=== PATIENT | male | born 1980 | race Caucasian/White ===

== ENCOUNTER 2016-10-17 19:35 | Emergency (ER) | payer OTHER ==
--- NOTE | 2016-10-17 22:03 | ED CLINICAL REPORT ---
Clinical Report - Physicians/Mid Levels [facility] [address] [place] [address] 10/17/2016 19:36 Patient: JENNIFER RICKS Time Seen: 20:45 Oct 17 2016. Arrived- By private vehicle. Historian- patient (SO). HISTORY OF PRESENT ILLNESS Chief Complaint: nausea / chills. This started just prior to arrival and is still present. No weight loss or headache. (atient reports night sweats, chills and nausea. It is insurance of breath or chest pain, this is been ongoing for 24 hours. Denies history of similar. Denies any recent illness.). REVIEW OF SYSTEMS No fever, sore throat, sinus drainage, cough or difficulty breathing. No vomiting, diarrhea, chills, difficulty with urination or skin rash. No back pain, headache, mouth sores, chest pain or cough. No difficulty breathing, pedal edema, constipation, diarrhea or depression. No dizziness or fainting episodes. No difficulty with ambulation. All systems otherwise negative, except as recorded above. SOCIAL HISTORY Smoker- current status unknown. Alcohol use. History of drug use: marijuana. Not an IV drug user. ADDITIONAL NOTES The nursing notes have been reviewed. PHYSICAL EXAM Vital Signs: 10/17/2016 20:02 BP: 171/100. HR: 80. RR: 16. O2 saturation: 98%. Temp: 98 F. Appearance: Alert. Eyes: Eyes normal inspection. ENT: Nose normal. No pharyngeal erythema. CVS: Normal heart rate and rhythm. Heart sounds normal. Respiratory: No respiratory distress. Breath sounds normal. Abdomen: No visible injury. Soft. Bowel sounds normal. Back: Normal inspection. No CVA tenderness. Skin: Normal skin color. Neuro: Oriented X 3. LABS, X-RAYS, AND EKG EKG: EKG time: (2031). No acute process. No acute ischemia. Normal EKG. Rate: 74. Normal P waves. Normal VAISHNAVI. Normal QRS complex. Normal axis. Normal ST and T waves and QT. The study has been interpreted contemporaneously. The EKG appears to be a good tracing. Laboratory Tests: CBC w Diff: (ANNELIESE: 10/17/2016 20:41) ( MsgRcvd 10/17/2016 21:00) Final results Test Result Flag Units (Reference) WHITE BLOOD COUNT 7.2 K/uL (4.5-11.5) RED BLOOD COUNT 5.64 M/uL (4.50-5.90) HEMOGLOBIN 15.2 gm/dL (13.5-17.5) HEMATOCRIT 45.8 % (41.0-53.0) MEAN CELL VOLUME 81 fL (80-100) MEAN CORPUSCULAR HGB 27 pg (26-34) MEAN CORPUSCULAR HGB CONC 33 g/dL (31-37) RED CELL DISTRIBUTION WIDTH 15.9 H % (11.6-14.8) PLATELET COUNT 309 K/uL (150-400) NEUTROPHIL % 71.0 % (50-75) LYMPH % 23.0 L % (25-40) MONO % 5.3 % (3-14) EOSINOPHIL % 0.3 % (0-4) BASOPHIL % 0.4 % (0-2) CHEM 13 PANEL: (ANNELIESE: 10/17/2016 20:41) ( MsgRcvd 10/17/2016 21:42) Final results Test Result Flag Units (Reference) GLUCOSE 96 mg/dL (70-110) BUN 7 mg/dL (7-18) CREATININE 1.2 mg/dL (0.6-1.3) Estimated GFR >60 mL/min Estimated GFR- >60 mL/min Note: Persistent reduction over 3 months in eGFR<60 mL/min/1.73 m2 defines CKD. Patients with eGFR values>=60 mL/min/1.73 m2 may also have CKD if evidence ofpersistent proteinuria. Additional information may be foundat www.kidney.org. SODIUM 141 mmol/L (136-145) POTASSIUM 3.6 mmol/L (3.5-5.1) CHLORIDE 102 mmol/L (98-107) CARBON DIOXIDE 28 mmol/L (21-32) CALCIUM 9.7 mg/dL (8.5-10.1) TOTAL PROTEIN 8.3 H g/dL (6.4-8.2) ALBUMIN 4.2 g/dL (3.3-5.0) BILIRUBIN, TOTAL 0.4 mg/dL (0.0-1.0) ALKALINE PHOSPHATASE 77 U/L (46-116) AST (SGOT) 21 U/L (15-37) ALT (SGPT) 28 U/L (12-78) CPK 289 H U/L (24-260) MAGNESIUM 1.9 mg/dL (1.8-2.4) CK-MB 2.6 ng/mL (0.5-3.2) %CKMB 0.9 % (0.0-4.0) TROPONIN I <0.05 ng/mL (0.00-1.5) TROPONIN REFERENCE RANGE:<0.1 NEGATIVE0.1-1.5 INDETERMINANT>1.5 POSITIVE Rapid Influenza Screen: (ANNELIESE: 10/17/2016 20:30) ( MsgRcvd 10/17/2016 21:08) Final results SPECIMEN DESCRIPTION: N Test Result Flag Units (Reference) RAPID INFLUENZA SCREEN DATE: 10/17/16 INFLUENZA A: NEGATIVE SCREEN FOR INFLUENZA A INFLUENZA B: NEGATIVE SCREEN FOR INFLUENZA B . PROGRESS AND PROCEDURES Course of Care: Pt here with largely no sx. NO headache. Pt with no sob/ chest pain. Pt sx onset > 24 hours, here in er complete work up including cardiac enzymes, ekg/ chest xr negative. Pt stable. Afebrile. No signs of systemic dz process. Pt to have bp checked with pcp, and to f/u outpatient otherwise. 10/17/2016 22:10 BP: 166/94. HR: 76. RR: 18. O2 saturation: 100%. Temp: 97.7 F. Patient is stable. Symptoms better. Patient/family counseled. Disposition: Discharged. CLINICAL IMPRESSION Hypertension. Acute viral syndrome INSTRUCTIONS Prescription Medications: Zofran (orally disintegrating tablets) 4 mg: take 1 orally every 6 hours for 3 days as needed for nausea and vomiting. Dispense ten (10). No refill. Substitution is permissible. OTC Medications: Take OTC medications according to label instructions. Available over the counter. Acetaminophen (available over the counter): take according to label instructions. Follow-up: Follow up with doctor Saturday. (Electronically signed by Jaci Corona P.A.-C 10/17/2016 22:46)
--- NOTE | 2016-10-17 22:03 | ED ORDER SUMMARY ---
..... Patient: JENNIFER RICKS OrderSheet [facility] VisitID: [id number] [place] [address] 36y, M Registration Date/Time: 10/17/2016 ORDER SHEET Weight: 92.0 kg (stated) Allergies: No Known Drug Allergy GENERAL ORDERS: Chest 2V Urgent (20:19 10/17/2016 EKoroleva P.A.-C) (Ack 20:20 AMcQuoid ER Tech1) (20:50 AMcQuoid ER Tech1) Traveling Auditor (Continuous) (20:19 10/17/2016 EKoroleva P.A.-C) (Ack 20:20 AMcQuoid ER Tech1) (20:43 DBeyer R.N.) Cardiac Panel Stat (20:19 10/17/2016 EKoroleva P.A.-C) (Ack 20:20 AMcQuoid ER Tech1) (20:48 ALawrence ER Tech1) EKG - ER Stat (20:19 10/17/2016 EKoroleva P.A.-C) (Ack 20:20 AMcQuoid ER Tech1) (20:34 ALawrence ER Tech1) Rapid Influenza Screen (Nasal Pharyngeal) (n) Urgent (20:27 10/17/2016 EKoroleva P.A.-C) (Ack 20:31 AMcQuoid ER Tech1) (20:35 AMcQuoid ER Tech1) MEDICATION ORDERS: IV FLUIDS: IV Saline Lock (20:19 10/17/2016 EKoroleva P.A.-C) (20:39 DBeyer R.N.) ORDER SHEET NOTES: [Electronically signed by Jaci Corona P.A.-C (22:46 10/17/2016)] [Electronically signed by Jerry Lewis R.N. (00:29 10/18/2016)] [Electronically locked/signed by Jerry Lewis R.N. (00:29 10/18/2016)]
--- NOTE | 2016-10-17 22:03 | ED NURSING NOTES ---
Clinical Report - Nurses [facility] [address] [place] [address] 10/17/2016 19:36 Patient: JENNIFER RICKS TRIAGE Triage time 20:Oct 17 2016. Acuity: LEVEL 4. Chief Complaint: (nausea, hbp). --20:05 Jerry Lewis R.N. 20:02 10/17/16. BP: 171/100. HR: 80. RR: 16. O2 saturation: 98%. Temp: 98 F. Pain level now 0/10. --20:05 Jerry Lewis R.N. Weight: 92 kg stated. Height/Length: 68 inches Per Patient. BMI: 30.8. --20:03 Jerry Lewis R.N. Medications SEROquel Oral. --20:03 Jerry Lewis R.N. Paxil Oral. --20:03 Jerry Lewis R.N. Allergies No Known Drug Allergy. --20:04 Jerry Lewis R.N. History Arrived by private vehicle. SOCIAL HX: Light tobacco smoker. Occasional alcohol use. History of drug use: marijuana. --20:05 Jerry Lewis R.N. Interventions ID band on patient. To treatment room. --20:05 Jerry Lewis R.N. PHYSICAL ASSESSMENT ( Pt states feeling a little off started having "hot flashes" yesterday). GENERAL / NEURO / PSYCH: Alert. Oriented X 4. Appears in no acute distress. HEENT: Pupils equal, round and reactive to light. No facial asymmetry noted. RESPIRATORY: Respirations not labored. Chest nontender. Breath sounds within normal limits. CVS: Capillary refill less than 2 seconds. Pulses within normal limits. GI / : Abdomen soft. SKIN: Skin is warm and dry. --20:08 Jerry Lewis R.N. NURSING PROGRESS NOTES Pulse oximeter and NIBP monitor placed on patient. Patient gowned. Call light placed in reach. Side rails up x 1. Bed placed in lowest position. Brakes of bed on. --20:08 Jerry Lewis R.N. 20:11 10/17/16. BP: 162/95. --20:11 Jerry Lewis R.N. EKG time: (2031). EKG was performed by a tech and shown to the PA. --20:34 Guan[place]ito Dia ER Tech1 20:39 10/17/2016 Site #1 started via IV in the right with an 20g angiocath; one attempt. Blood drawn. Saline lock flushed with saline. --20:39 Jerry Lewis R.N. <<STRICKEN ENTRY-- 21:51 10/17/16. BP: 148. HR: 80. RR: 18. O2 saturation: 99%. --21:52 Jerry Lewis R.N. --END STRIKE>> Correction --21:59 Jerry Lewis R.N. 21:51 10/17/16. BP: 148/52. HR: 80. RR: 18. O2 saturation: 99%. --22:00 Jerry Lewis R.N. 22:01 10/17/16. BP: 157/95. HR: 73. RR: 18. O2 saturation: 98%. Temp: 98.5 F. --22:02 Dia Calabrese ER Tech1. DISPOSITION / DISCHARGE 22:11 10/17/2016 Site #1 removed upon discharge. Bandage applied. --22:11 Paris Domínguez, ER Tech1 Departure time: 2207. No learning barriers present. Reviewed warnings. Reviewed medication(s). Patient verbalized understanding. Written instructions provided in Indonesian. Discharge instructions not provided and reviewed with the patient. The patient was discharged by the physician elementary assistant principal. He was discharged home and accompanied by ballet company artistic director. He left the Emergency Department ambulatory and via private vehicle. Assistant Technician driving. --22:12 Paris Domínguez, ER Tech1 22:10 10/17/16. BP: 166/94. HR: 76. RR: 18. O2 saturation: 100%. Temp: 97.7 F. Pain level now 0/10. --22:12 McParis Lewis, ER Tech1. Locked/Released at 10/18/2016 0:29 by Jerry Lewis R.N.
--- NOTE | 2016-10-17 22:03 | ED NURSING NOTES ---
Clinical Report - Nurses [facility] [address] [place] [address] 10/17/2016 19:36 Patient: JENNIFER RICKS TRIAGE Triage time 20:Oct 17 2016. Acuity: LEVEL 4. Chief Complaint: (nausea, hbp). --20:05 Jerry Lewis R.N. 20:02 10/17/16. BP: 171/100. HR: 80. RR: 16. O2 saturation: 98%. Temp: 98 F. Pain level now 0/10. --20:05 Jerry Lewis R.N. Weight: 92 kg stated. Height/Length: 68 inches Per Patient. BMI: 30.8. --20:03 Jerry Lewis R.N. Medications SEROquel Oral. --20:03 Jerry Lewis R.N. Paxil Oral. --20:03 Jerry Lewis R.N. Allergies No Known Drug Allergy. --20:04 Jerry Lewis R.N. History Arrived by private vehicle. SOCIAL HX: Light tobacco smoker. Occasional alcohol use. History of drug use: marijuana. --20:05 Jerry Lewis R.N. Interventions ID band on patient. To treatment room. --20:05 Jerry Lewis R.N. PHYSICAL ASSESSMENT ( Pt states feeling a little off started having "hot flashes" yesterday). GENERAL / NEURO / PSYCH: Alert. Oriented X 4. Appears in no acute distress. HEENT: Pupils equal, round and reactive to light. No facial asymmetry noted. RESPIRATORY: Respirations not labored. Chest nontender. Breath sounds within normal limits. CVS: Capillary refill less than 2 seconds. Pulses within normal limits. GI / : Abdomen soft. SKIN: Skin is warm and dry. --20:08 Jerry Lewis R.N. NURSING PROGRESS NOTES Pulse oximeter and NIBP monitor placed on patient. Patient gowned. Call light placed in reach. Side rails up x 1. Bed placed in lowest position. Brakes of bed on. --20:08 Jerry Lewis R.N. 20:11 10/17/16. BP: 162/95. --20:11 Jerry Lewis R.N. EKG time: (2031). EKG was performed by a tech and shown to the PA. --20:34 Guanakito Dia ER Tech1 20:39 10/17/2016 Site #1 started via IV in the right with an 20g angiocath; one attempt. Blood drawn. Saline lock flushed with saline. --20:39 Jerry Lewis R.N. <<STRICKEN ENTRY-- 21:51 10/17/16. BP: 148. HR: 80. RR: 18. O2 saturation: 99%. --21:52 Jerry Lewis R.N. --END STRIKE>> Correction --21:59 Jerry Leiws R.N. 21:51 10/17/16. BP: 148/52. HR: 80. RR: 18. O2 saturation: 99%. --22:00 Jerry Lewis R.N. 22:01 10/17/16. BP: 157/95. HR: 73. RR: 18. O2 saturation: 98%. Temp: 98.5 F. --22:02 Dia Calabrese ER Tech1. DISPOSITION / DISCHARGE 22:11 10/17/2016 Site #1 removed upon discharge. Bandage applied. --22:11 Paris Domínguez, ER Tech1 Departure time: 2207. No learning barriers present. Reviewed warnings. Reviewed medication(s). Patient verbalized understanding. Written instructions provided in Urdu. Discharge instructions not provided and reviewed with the patient. The patient was discharged by the physician gift shop assistant. He was discharged home and accompanied by slag expander. He left the Emergency Department ambulatory and via private vehicle. Rail Setter driving. --22:12 Paris Domínguez, ER Tech1 22:10 10/17/16. BP: 166/94. HR: 76. RR: 18. O2 saturation: 100%. Temp: 97.7 F. Pain level now 0/10. --22:12 McParis Lewis, ER Tech1. Locked/Released at 10/18/2016 0:29 by Jerry Lewis R.N.
--- NOTE | 2016-10-17 22:03 | ED ORDER SUMMARY ---
..... Patient: JENNIFER RICKS OrderSheet [facility] VisitID: [id number] [place] [address] 36y, M Registration Date/Time: 10/17/2016 ORDER SHEET Weight: 92.0 kg (stated) Allergies: No Known Drug Allergy GENERAL ORDERS: Chest 2V Urgent (20:19 10/17/2016 EKoroleva P.A.-C) (Ack 20:20 AMcQuoid ER Tech1) (20:50 AMcQuoid ER Tech1) Business Development Engineer (Continuous) (20:19 10/17/2016 EKoroleva P.A.-C) (Ack 20:20 AMcQuoid ER Tech1) (20:43 DBeyer R.N.) Cardiac Panel Stat (20:19 10/17/2016 EKoroleva P.A.-C) (Ack 20:20 AMcQuoid ER Tech1) (20:48 ALawrence ER Tech1) EKG - ER Stat (20:19 10/17/2016 EKoroleva P.A.-C) (Ack 20:20 AMcQuoid ER Tech1) (20:34 ALawrence ER Tech1) Rapid Influenza Screen (Nasal Pharyngeal) (n) Urgent (20:27 10/17/2016 EKoroleva P.A.-C) (Ack 20:31 AMcQuoid ER Tech1) (20:35 AMcQuoid ER Tech1) MEDICATION ORDERS: IV FLUIDS: IV Saline Lock (20:19 10/17/2016 EKoroleva P.A.-C) (20:39 DBeyer R.N.) ORDER SHEET NOTES: [Electronically signed by Jaci Corona P.A.-C (22:46 10/17/2016)] [Electronically signed by Jerry Lewis R.N. (00:29 10/18/2016)] [Electronically locked/signed by Jerry Lewis R.N. (00:29 10/18/2016)]
--- NOTE | 2016-10-17 22:16 | DIAGNOSTIC IMAGING REPORT ---
PROCEDURE: XR CHEST 2 VIEW INDICATION: CHEST PAIN TECHNIQUE: Two views. COMPARISON: None. FINDINGS: The cardiomediastinal contour and central vasculature are within normal limits. The lungs are clear without focal consolidation, pleural effusion, or pneumothorax. The visualized osseous structures are intact. IMPRESSION: 1. Normal chest.
--- NOTE | 2016-10-18 00:30 | ED DISCHARGE INSTRUCTIONS ---
Patient: JENNIFER RICKS General Instructions [facility] VisitID: [id number] [place] [address] 36y, M Registration Date/Time: 10/17/2016 Hypertension. Acute viral syndrome INSTRUCTIONS Prescription Medications: Zofran (orally disintegrating tablets) 4 mg: take 1 orally every 6 hours for 3 days as needed for nausea and vomiting. Dispense ten (10). No refill. Substitution is permissible. OTC Medications: Take OTC medications according to label instructions. Available over the counter. Acetaminophen (available over the counter): take according to label instructions. Follow-up: Follow up with doctor Saturday. ADDITIONAL INFORMATION High Blood Pressure -- To Be Confirmed [No Tx] Your blood pressure was higher today than normal. Sometimes anxiety or pain can cause a temporary rise in blood pressure that later returns to normal. If your blood pressure is high on one measurement, this does not mean that you have hypertension (a chronic illness). However, you must have your blood pressure measured again within the next few days to find out if its still high. A normal blood pressure is 120/80 or less. The first (top) number is the "systolic" pressure. The second (bottom) number is the "diastolic" pressure. Hypertension exists when either the top number is 140 or higher, OR the bottom number is 90 or higher on repeated measurements. Blood pressure in the range of 120-140 (systolic) or 80-89 (diastolic) is considered "pre-hypertension". This means your are at risk for getting hypertension. You should have regular blood pressure checks to be sure your blood pressure is not rising. Home Care: Measure your blood pressure on 3 different days and write down the results. This can be done at your doctor's office or this facility. Some pharmacies and grocery stores offer automated blood pressure machines for your use. Follow Up: If your blood pressure is "high" (over 120/80) on 2 out of 3 days, you will need to follow up with your doctor for further evaluation and treatment. DO NOT PUT THIS OFF! Untreated high blood pressure increases the risk for heart attack, also known as acute myocardial infarction, or AMI, and stroke. It is a treatable condition. Get Prompt Medical Attention if any of the following occur: Chest pain or shortness of breath Severe headache Throbbing or rushing sound in the ears Nosebleed Sudden severe abdominal pain Extreme drowsiness, confusion or fainting Dizziness or vertigo (dizziness with spinning sensation) Weakness of an arm or leg or one side of the face Difficulty with speech or vision Viral Syndrome (Adult) A viral illness may cause a number of symptoms. The symptoms depend on the part of the body that the virus affects. If it settles in the nose, throat, and lungs, it may cause cough, sore throat, congestion, and sometimes headache. If it settles in the stomach and intestinal tract, it may cause vomiting and diarrhea. Sometimes it causes vague symptoms like "aching all over," feeling tired, loss of appetite, or fever. A viral illness usually lasts1 to 2 weeks, but sometimes it lasts longer. In some cases, a more serious infection can look like a viral syndrome in the first few days of the illness. You may need anotherexam and additional teststo know the difference.Watch for the warning signs listed below. Home care Follow these guidelines for taking care of yourself at home: If symptoms are severe, rest at home for the first 2 to 3 days. Stay away from cigarette smoke - both your smoke and the smoke from others. You may useacetaminophen or ibuprofen for fever, muscle aching, and headache, unless another medicine was prescribed for this.If you have chronic liver or kidney disease or ever had a stomach ulcer or GI bleeding, talk with your doctor before using these medicinesNo one who is younger than 18 and ill with a fever should take aspirin. It may cause severe liver damage. Your appetite may be poor, so a light diet is fine. Avoid dehydration by drinking 8 to 12 8-ounce glasses of fluids each day. This may include water; orange juice; lemonade; apple, grape, and cranberry juice; clear fruit drinks; electrolyte replacement and sports drinks; and decaffeinated teas and coffee. If you have been diagnosed with a kidney disease, ask your doctor how much and what types of fluids you should drink to prevent dehydration. If you have kidney disease, drinking too much fluid can cause it build up in the your body and be dangerous to your health. Wept-wit-amorpjm remedies won't shorten the length of the illness but may be helpful forcough, sore throat; and nasal and sinus congestion. Don't use decongestants if you have high blood pressure. Follow-up care Follow up with your health care provider if you do not improve over the next week. When to seek medical care Get prompt medical attention if any of these occur: Cough with lots of colored sputum (mucus) or blood in your sputum Chest pain, shortness of breath, wheezing, or difficulty breathing Severe headache; face, neck, or ear pain Severe, constant pain in the lower right side of your belly (abdominal) Continued vomiting (cant keep liquids down) Frequent diarrhea (more than 5 times a day); blood (red or black color) or mucus in diarrhea Feeling weak, dizzy, or like you are going to faint Extreme thirst Fever of 100.4 F (38 C) oral or higher, not better with fever medication Convulsion You have been given the following additional information: Hypertension, To Be Confirmed Viral Syndrome (Adult) (Electronically signed by Jaci Corona P.A.-C 10/17/2016 22:46)
--- NOTE | 2016-10-18 00:30 | ED MED RECONCILIATION SUMMARY ---
Patient: JENNIFER RICKS Medication Reconciliation Report [facility] VisitID: [id number] [place] [address] 36y, M Registration Date/Time: 10/17/2016 Weight: 92.0 kg Height/Length: 68 in. BMI: 30.8 ALLERGIES: No Known Drug Allergy The patient's Home Medications are listed below: THE FOLLOWING MEDICATIONS NEED TO BE RECONCILED: Paxil Oral SEROquel Oral The source(s) of the original Home Medication information: Not obtained. The following Medications were given to the patient in the Emergency Department: None. The following Medications were prescribed to the patient: Take OTC medications according to label instructions. Available over the counter. -- Jaci Corona, P.A.-C Acetaminophen (available over the counter): take according to label instructions. -- Jaci Corona, P.A.-C Zofran (orally disintegrating tablets) 4 mg: take 1 orally every 6 hours for 3 days as needed for nausea and vomiting. Dispense ten (10). No refill. Substitution is permissible. -- Jaci Corona, P.A.-C
--- NOTE | 2016-10-18 00:30 | ED MAR SUMMARY ---
..... Medication Administration Record [facility] [address] [place], [place] [id number] Patient: JENNIFER RICKS Visit ID: [id number] 36y, M Weight: 92.0 kg Height/Length: 68 in BMI: 30.8 ALLERGIES: No Known Drug Allergy
--- NOTE | 2016-10-18 00:30 | ED MAR SUMMARY ---
..... Medication Administration Record [facility] [address] [place], [place] [id number] Patient: JENNIFER RICKS Visit ID: [id number] 36y, M Weight: 92.0 kg Height/Length: 68 in BMI: 30.8 ALLERGIES: No Known Drug Allergy
--- NOTE | 2016-10-18 00:30 | ED MED RECONCILIATION SUMMARY ---
Patient: JENNIFER RICKS Medication Reconciliation Report [facility] VisitID: [id number] [place] [address] 36y, M Registration Date/Time: 10/17/2016 Weight: 92.0 kg Height/Length: 68 in. BMI: 30.8 ALLERGIES: No Known Drug Allergy The patient's Home Medications are listed below: THE FOLLOWING MEDICATIONS NEED TO BE RECONCILED: Paxil Oral SEROquel Oral The source(s) of the original Home Medication information: Not obtained. The following Medications were given to the patient in the Emergency Department: None. The following Medications were prescribed to the patient: Take OTC medications according to label instructions. Available over the counter. -- Jaci Corona, P.A.-C Acetaminophen (available over the counter): take according to label instructions. -- Jaci Corona, P.A.-C Zofran (orally disintegrating tablets) 4 mg: take 1 orally every 6 hours for 3 days as needed for nausea and vomiting. Dispense ten (10). No refill. Substitution is permissible. -- Jaci Corona, P.A.-C
== END 2016-10-17 22:08 ==
LOC: ED SRH 19:35 → EDBD 19:37 → ED SRH 19:37
DX: B34.9 Viral infection, unspecified (principal); I10 Essential (primary) hypertension
CPT/HCPCS: 90074; 90100; 90616; 90617; 91400; 92610; 92720; 95059